=== PATIENT | female | born 1965 | race Caucasian/White ===

== ENCOUNTER → 2017-03-08 | Outpatient (CLI) | payer OTHER | LOC: MHCPAIN 13:38 | DX: G89.29 Other chronic pain (principal); M47.27 Other spondylosis with radiculopathy, lumbosacral region; M53.3 Sacrococcygeal disorders, not elsewhere classified; F17.210 Nicotine dependence, cigarettes, uncomplicated | CPT/HCPCS: G0463 ==

== ENCOUNTER → 2017-04-13 | Outpatient (CLI) | payer OTHER | LOC: MHCPAIN 14:28 | DX: G89.29 Other chronic pain (principal); M47.817 Spondylosis without myelopathy or radiculopathy, lumbosacral region; M79.2 Neuralgia and neuritis, unspecified; F17.210 Nicotine dependence, cigarettes, uncomplicated | CPT/HCPCS: G0463 ==

== ENCOUNTER 2021-05-30 18:25 | Emergency (ER) | payer OTHER ==
[~2021-05-30] VITALS: Ht 172.7 cm; Wt 84.1 kg
[2021-05-30 18:34] VITALS: TEMP 98.1
[2021-05-30 19:38] VITALS: BP 136/70; PULSE 75
== END 2021-05-30 19:39 | disposition home or self-care (01) ==
LOC: COL.ER 18:25
DX: S93.401A Sprain of unspecified ligament of right ankle, initial encounter (principal); F17.210 Nicotine dependence, cigarettes, uncomplicated; W10.9XXA Fall (on) (from) unspecified stairs and steps, initial encounter

== ENCOUNTER 2023-08-23 00:34 | Emergency (ER) | payer OTHER ==
[~2023-08-23] VITALS: Ht 172.7 cm; Wt 88.6 kg
[2023-08-23 00:37] VITALS: TEMP 98
[2023-08-23] MEDS ORDERED: Ketorolac 15 MG/ML VIAL IV ONE (01:00)
[2023-08-23] MEDS ORDERED: Ondansetron 4 MG/2 ML VIAL IV ONE (01:00)
[2023-08-23] MEDS ORDERED: NS 1,000 ML IV ONE (01:00)
[2023-08-23] MEDS ORDERED: ZOFRAN ODT4 MG PO (02:45)
[2023-08-23 02:46] LABS: COLLECTION METHOD CLEAN CATCH
[2023-08-23 02:56] LABS: CREATININE, serum 1.03 mg/dL (0.57-1.11)
[2023-08-23 02:57] LABS: ALBUMIN 3.1 gm/dL (3.5-5.0); CALCIUM 8.3 mg/dL (8.4-10.2); TOTAL PROTEIN 6.4 gm/dL (6.2-8.1)
[2023-08-23 02:58] LABS: BILIRUBIN,TOTAL 0.2 mg/dL (0.2-1.2)
[2023-08-23 03:10] LABS: URINE APPEARANCE TURBID (CLEAR/HAZY); URINE BLOOD 2+ (NEGATIVE); URINE COLOR Dark Yellow (YELLOW); URINE GLUCOSE NEGATIVE (NEGATIVE); URINE KETONE TRACE (NEGATIVE); URINE NITRATE NEGATIVE (NEGATIVE); URINE PROTEIN(semi-quant) TRACE (NEGATIVE); URINE UROBILINOGEN 0.2 E.U/dL (0.2-1.0)
[2023-08-23 03:12] LABS: BASO # 0.1 K/mm3 (0.0-0.2); BASO % 0.6 % (0.0-2.0); EOS # 0.2 K/mm3 (0.0-0.7); EOS % 1.4 % (0.0-4.0); GRAN # 8.1 K/mm3 (1.4-6.5); HEMATOCRIT 50.3 % (37.0-47.0); HEMOGLOBIN 17.3 g/dl (12.5-16.0); LYMPH % 9.9 % (20.0-51.0); MEAN CELL VOLUME 90 fl (80.0-100.0); MEAN CORPUSCULAR HEMOGLOBIN 31 pg (27-31); MEAN CORPUSCULAR HGB CONC 34 g/dl (33.0-37.0); MEAN PLATELET VOLUME 10.8 fl (7.4-10.4); MONO % 9.6 % (1.7-9.3); PLATELET COUNT 250 K/mm3 (130-400); RED BLOOD COUNT 5.59 M/mm3 (4.10-5.30); REDCELL DISTRIBUTION WIDTH-CV 13.2 % (11.5-14.5)
[2023-08-23 03:25] LABS: URINE RBC 0-2 /hpf (0-2)
[2023-08-23 03:26] LABS: AMORPHOUS CRYSTAL PRESENT (NOT PRESENT); URINE BACTERIA MODERATE /hpf (NONE SEEN); URINE CALCIUM OXALATE CRYSTAL PRESENT (NOT PRESENT)
[2023-08-23 03:37] VITALS: BP 113/64; PULSE 72
== END 2023-08-23 03:38 | disposition home or self-care (01) ==
LOC: COL.ER 00:34
PROVIDERS: Physician Assistant
DX: B34.9 Viral infection, unspecified (principal); R11.2 Nausea with vomiting, unspecified; R19.7 Diarrhea, unspecified; R52 Pain, unspecified; F17.210 Nicotine dependence, cigarettes, uncomplicated
CPT/HCPCS: J1885; J2405; J7030